=== PATIENT | male | born 1950 | race Caucasian/White ===

== ENCOUNTER → 2016-11-09 | Outpatient (CLI) | payer MEDICARE, OTHER ==
[~2016-11-09] MED LIST: BACTRIM DS DPS1 TAB PO; CARVEDILOL25 MG PO; CLARITIN DPS10 MG PO; CLEOCIN HCL300 MG PO; COUMADIN DPS2 MG PO; COUMADIN4 MG PO; JANTOVEN2 MG PO; KLOR-CON M2020 ME1 PO; LAC-HYDRIN FIV226 GM TP; LASIX DPS80 MG; LASIX DPS80 MG PO; LEVAQUIN DPS750 MG PO; LIPITOR DPS10 MG PO; MICRO-K DPS10 MEQ PO; MULTIPLE VITAM1 EACH PO; PROVENTIL2.5 MG/0.5 IH; SYMBICORT160 MCG/6 IH; THERA1 EACH PO; TYLENOL DPS325 MG PO; VITAMIN D31000 UNIT PO
== END | disposition home or self-care (01) ==
LOC: RAD.S 11-03 10:30
DX: L02.214 Cutaneous abscess of groin (principal); R60.0 Localized edema